=== PATIENT | male | born 1970 | race Caucasian/White ===

== ENCOUNTER 2023-08-02 03:25 | Emergency (ER) | payer BC, SELFPAY ==
[2023-08-02 03:28] VITALS: BP 130/84
[2023-08-02 03:49] LABS: Glucose - Point of Care 104 mg/dl (70-99)
--- NOTE | 2023-08-02 03:50 | ED.GENMED ---
History of Present Illness
General
Chief Complaint: Throat Problem
Source: patient
Exam Limitations: none
Time Seen by Provider: 08/02/23 03:40
Travel History
Have you had any contact with someone who has COVID-19?: No
Do you have any symptoms of coronavirus? Fever > 100 degrees, chills, cough, shortness of breath, sore throat, loss of taste or smell, muscle aches, or headache?: No
History of Present Illness
History of Present Illness:
See MDM
Past History
Past History
ED Past Medical History: None
ED Past Surgical History: None
Social History
Tobacco: Former smoker
Alcohol: None
Phy Exam
Physical Exam
Physical Exam:
See MDM
Course
Orders/Labs/Results
Orders:
Orders
08/02/23 03:50
CT Head W/o Iv Contrast Urgent
Comment:
Reason For Exam: headache
Urinalysis Reflex To Culture Urgent
0.9% Sodium Chloride 1000 ml [Nss] 1,000 ml IV BOLUS
Ketorolac [Toradol] 30 mg IV NOW STA
08/02/23 04:03
COVID-19 Antigen Urgent
Source: Nasal Swab
Complete Blood Count/With Diff Urgent
Comprehensive Metabolic Panel Urgent
TSH Reflex To Free T4 Urgent
Influenza A+B Rapid Molecular Urgent
MARILEE Source: Nasal Swab
Specimen Description:
Abnormal Lab Results
08/02/23 08/02/23
03:47 04:03
Absolute Monos (auto) 0.9 H 10^3/uL
(0.1-0.6)
Lymphocytes % 18.9 L %
(20.5-51.1)
Monocytes % 12.7 H %
(1.7-9.3)
Glucose 112 H mg/dl
(70-99)
SARS-CoV-2 Antigen Positive A
(Negative)
POC Glucose 104 H mg/dl
(70-99)
08/02/23 04:03
08/02/23 04:03
Vital Signs
Initial and Last Documented VS:
Initial Vital Signs
Temp Pulse Resp BP Pulse Ox
99.0 F 92 16 130/84 95
08/02/23 03:28 08/02/23 03:28 08/02/23 03:28 08/02/23 03:28 08/02/23 03:28
Last Documented Vital Signs
Temp Pulse Resp BP Pulse Ox
99.0 F 92 16 130/84 95
08/02/23 03:28 08/02/23 03:28 08/02/23 03:28 08/02/23 03:28 08/02/23 03:28
MDM/Problems Addressed
Differential Diagnosis Includes:
HPI and MDM Narrative:
53-year-old male presenting with several days of generalized muscle aches, dehydration and daytime sleepiness. Patient states he is having insomnia at night but develops excessive sleepiness during the day. Patient states he feels dehydrated and
has been drinking lots of water.
On exam, patient is well-appearing and nontoxic. Lungs are clear. Posterior pharynx clear. Given his symptoms, will obtain viral testing, basic blood work and provide IV fluids
Physical exam
General: Well appearing and non-toxic
HEENT: protecting airway. Posterior pharynx clear
Neck: supple
CV: No evidence of cyanosis. Regular rate and rhythm
Resp: No accessory muscle use. Lungs clear
Abd: Non-distended
Extremities: No deformities
Neuro: alert
Psych: Normal affect
Skin: Intact
Problems Addressed including Acute and Chronic Conditions affecting care:
1. Generalized weakness
Acuity: acute
Prognosis: stable
Details: Will obtain viral testing, basic blood work and fluids
2. Headache
Acuity: acute
Prognosis: stable
Details: Will obtain CT head
Updates
Patient found to be COVID-positive. He is out of the window of Paxlovid. CT head negative and blood work without clinical significance. Patient feeling better on reassessment feels comfortable going home
Differential Diagnosis (but not limited to): Viral syndrome, dehydration, hyponatremia, hyperglycemia
Testing considered: Cardiac testing
Drug therapy (if applicable): OTC meds, please see d/c instruction regarding Rx drugs
Amount and/or Complexity of Data Reviewed
Clinical info obtained from: Patient
External data reviewed: N/A
Labs I independently reviewed (but not limited to): WBC normal, COVID +
Radiology: The CT scan was personally and independently reviewed. In addition, official CT report reviewed.
Pulse Ox: not hypoxic
EKG independently reviewed: N/A
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
Critical Care: N/A
Risk of Complication:
Social Determinants of health: Good social support
Discussed with other providers: N/A
Escalation of Care includes Admit/Obs: After being observed in the Emergency Department, pt stable for discharge.
Occasional wrong word or 'sound a like' substitutions may have occurred due to the inherent limitations of voice recognition software. Read the chart carefully and recognize, using context, where substitutions have occurred.
*Critical Care Note
Total Time (30-74mins, 75-104mins- exclusive of procedures): Not Applicable
ED Attending Note
-
Portions of this chart may have been created with voice recognition software.� Occasional wrong word or��sound alike� substitutions may have occurred due to the inherent limitations of voice recognition software.
Discharge Plan
Departure
Patient Disposition: Home (Routine Discharge)
Date of Disposition: 08/02/23
Time of Disposition: 05:36
Patient with high blood pressure during this ER visit?: No
Discharge Problem:
COVID-19, Myalgia
Instructions: COVID-19 ED
Prescriptions:
New
diclofenac potassium 50 mg tablet
50 mg PO BID Qty: 20 0RF
Activity Restrictions/Additional Instructions:
Please return for any worsening symptoms.
You may return at any time if you have further concerns.
Please follow up with your doctor at the first available appointment, preferably this week.
Thank you for choosing [facility].
Interventions
Interventions:
*Risk Screen - Suicide Last Done: 08/02/23 03:28
*General Assessment Last Done: 08/02/23 04:05
*Neglect/Abuse Screening Last Done: 08/02/23 03:28
*ED COVID-19 Vaccine History Last Done: 08/02/23 03:28
ED-EENT Assessment Last Done: 08/02/23 04:05
ED- Pulmonary Assessment Last Done: 08/02/23 04:05
Discharge Date and Time
Print Language: MALTESE
[2023-08-02 04:05] VITALS: BMI 30.5
[2023-08-02] MEDS: NSS 1000 IV (04:05)
[2023-08-02] MEDS: TORADOL 30 MG IV (04:05)
[2023-08-02 04:20] LABS: % Basophils 0.3 % (0-2); % Eosinophils 0.3 % (0-6); % Immature Granulocytes 0.4 % (0-0.5); % Lymphocytes 18.9 % (20.5-51.1); % Monocytes 12.7 % (1.7-9.3); % Neutrophils 67.4 % (42.2-75.2); Absolute Lymphocytes 1.3 10^3/uL (1.2-3.4); Absolute Monocytes 0.9 10^3/uL (0.1-0.6); Absolute Neutrophils 4.6 10^3/uL (1.4-6.5); Hematocrit 42.6 % (39.0-52.0); Hemoglobin 15.1 g/dL (13.0-18.0); Mean Corp Hgb Conc. 35.4 g/dL (33.0-37.0); Mean Corpuscular Volume 84.5 fL (80.0-94.0); Mean Platelet Volume 8.9 fL (7.4-10.4); Nucleated Red Blood Cells % 0 % (-); Platelet Count 180 10^3/uL (130-400); Red Blood Cell Count 5.04 10^6/uL (4.70-6.10); Red Cell Dist. Width 12.8 % (11.5-14.5); White Blood Cell Count 6.8 10^3/uL (4.8-10.8)
[2023-08-02 04:30] LABS: COVID-19 Antigen Positive (Negative)
[2023-08-02 04:42] LABS: ALT (SGPT) 37 U/L (0-50); AST (SGOT) 28 U/L (17-59); Albumin 3.9 g/dl (3.5-5.0); Alkaline Phosphatase 75 U/L (38-126); Blood Urea Nitrogen 18 mg/dl (9-20); Calcium 8.9 mg/dl (8.4-10.2); Carbon Dioxide 23 mmol/L (22-30); Chloride 104 mmol/L (98-107); Estimated Creatinine Clearance 88 ml/min; Glucose 112 mg/dl (70-99); Potassium 4.3 mmol/L (3.5-5.1); Sodium 135 mmol/L (135-145); Total Bilirubin 0.3 mg/dl (0.2-1.3); Total Protein 6.7 g/dl (6.3-8.2); eGFR > 60.00
[2023-08-02 05:13] LABS: TSH Reflex To Free T4 4.17 uIU/ml (0.47-4.68)
[2023-08-02 06:03] VITALS: BP 128/73
== END 2023-08-02 06:04 | disposition home or self-care (01) ==
LOC: EMR 03:25
PROVIDERS: EMERGENCY PHYSICIAN Student in an Organized Health Care Education/Training Program; FAMILY PHYSICIAN Family Medicine
DX: U07.1 COVID-19 (principal); M79.10 Myalgia, unspecified site; Z11.52 Encounter for screening for COVID-19
CPT/HCPCS: 99284; 96374; 96361; 70450; 80053; 82962; 84443; 85025; 87502; 87811